=== PATIENT | male | born 2005 | race Caucasian/White ===

== ENCOUNTER 2025-01-11 22:37 | Emergency (ER) | payer SELFPAY ==
[~2025-01-11] VITALS: Ht 170.2 cm; Wt 55.7 kg
[2025-01-11 22:39] VITALS: O2SAT 99
[2025-01-11 22:58] VITALS: BP 127/70; PULSE 66; RESP 18; TEMP 36.8; O2SAT 100
[2025-01-11] MEDS: VISCOUS LIDOCAINE 2% 15 ML UDC MM ONE (23:38)
[2025-01-11] MEDS: ACETAMINOPHEN 325MG TABLET PO ONE (23:38)
[2025-01-11] MEDS: MAGNESIUM/ALUMINUM HYDROXIDE/SIMETHICONE 30ML UDC PO ONE (23:38)
[2025-01-11] MEDS: ONDANSETRON 4MG ODT PO ONE (23:38)
[2025-01-11 23:41] LABS: BASOPHILS % 0.6 % (0.0-2.0); EOSINOPHILS % 2.5 % (0.0-5.0); HEMATOCRIT. 45.4 % (42.0-52.0); HEMOGLOBIN. 15.5 g/dL (14.0-18.0); LYMPHOCYTES % 26.6 % (20.0-50.0); MEAN PLATELET VOLUME 8.1 fl (7.4-10.4); MONOCYTES % 10.1 % (2.0-8.0); NEUTROPHILS % 60.2 % (40.0-76.0); PLATELET 296 x1000/uL (130-400); RED BLOOD CELL COUNT 4.86 mill/uL (4.7-6.1); RED CELL DISTRIBUTION WIDTH 12.6 % (11.6-14.6)
[2025-01-11 23:51] LABS: CREATININE 0.9 mg/dL (0.6-1.3)
[2025-01-11 23:52] LABS: UREA NITROGEN BLOOD 9 mg/dL (9-23)
[2025-01-11 23:53] LABS: ASPARTATE AMINOTRANSFERASE 18 IU/L (<34)
[2025-01-11 23:54] LABS: BILIRUBIN DIRECT 0.2 mg/dL (<=3.0); BILIRUBIN TOTAL 0.5 mg/dL (0.1-1.0); PROTEIN TOTAL 7.7 g/dL (6.0-8.3)
[2025-01-12 00:39] LABS: CLARITY URINE CLEAR (CLEAR); COLOR URINE YELLOW (YELLOW); GLUCOSE URINE NEGATIVE (NEGATIVE); KETONES URINE NEGATIVE (NEGATIVE); LEUKOCYTE ESTERASE URINE NEGATIVE (NEGATIVE); NITRITE URINE NEGATIVE (NEGATIVE); OCCULT BLOOD URINE NEGATIVE (NEGATIVE); PH URINE 7.0 (4.5-8.0); PROTEIN URINE NEGATIVE (NEGATIVE); SPECIFIC GRAVITY URINE 1.005 (1.005-1.030); UROBILINOGEN URINE 0.2 E.U./dL (0.2-1.0)
[2025-01-12] MEDS ORDERED: ACET-2708 MT (00:47)
[2025-01-12] MEDS ORDERED: MAG355OR21 MT (00:47)
== END 2025-01-12 00:53 | disposition home or self-care (01) ==
LOC: ER 22:38
DX: R10.13 Epigastric pain (principal); F19.90 Other psychoactive substance use, unspecified, uncomplicated; Z79.899 Other long term (current) drug therapy
CPT/HCPCS: 99284; 76705; 80076; 80048; 83690; 85025; 36415; 81003; Q0162